=== PATIENT | male | born 1975 | race Caucasian/White ===

== ENCOUNTER → 2016-05-22 | Outpatient (CLI) | payer BC | LOC: US 11:24 | DX: N40.1 Benign prostatic hyperplasia with lower urinary tract symptoms (principal); R35.0 Frequency of micturition; R30.0 Dysuria; K50.90 Crohn's disease, unspecified, without complications | CPT/HCPCS: 76856 ==

== ENCOUNTER → 2020-07-21 | Outpatient (CLI) | payer BC | LOC: RAD 15:03 | DX: Z01.818 Encounter for other preprocedural examination (principal) | CPT/HCPCS: 71046 ==

== ENCOUNTER → 2021-01-22 | Outpatient (CLI) | payer BC, MEDICARE ==
[2021-01-22 11:16] LABS: RED BLOOD COUNT 5.41 M/UL (4.20-5.50)
[2021-01-22 11:35] LABS: BUN/CREATININE RATIO 16 (0-10)
== END ==
LOC: LAB 10:31
PROVIDERS: Internal Medicine Gastroenterology
DX: K50.119 Crohn's disease of large intestine with unspecified complications (principal)
CPT/HCPCS: 36415; 80053; 82607; 85025; 85027

== ENCOUNTER → 2021-02-14 | Outpatient (CLI) | payer BC, MEDICARE ==
[2021-02-14 14:03] LABS: RED BLOOD COUNT 5.45 M/UL (4.20-5.50); WHITE BLOOD COUNT 9.2 K/UL (4.5-11.0)
[2021-02-14 14:04] LABS: BORDETELLA PARAPERTUSSIS Not Detected (Not Detectd); BORDETELLA PERTUSSIS Not Detected (Not Detectd); CHLAMYDIA PNEUMONIAE Not Detected (Not Detectd); CORONAVIRUS HKU1 Not Detected (Not Detectd); CORONAVIRUS NL63 Not Detected (Not Detectd); CORONOAVIRUS 229E Not Detected (Not Detectd); HUMAN METAPNEUMOVIRUS Not Detected (Not Detectd); HUMAN RHINOVIRUS/ENTEROVIRUS Not Detected (Not Detectd); INFLUENZA A Not Detected (Not Detectd); INFLUENZA B Not Detected (Not Detectd); MYCOPLASMA PNEUMONIAE Not Detected (Not Detectd); PARAINFLUENZA VIRUS 1 Not Detected (Not Detectd); PARAINFLUENZA VIRUS 2 Not Detected (Not Detectd); PARAINFLUENZA VIRUS 3 Not Detected (Not Detectd); PARAINFLUENZA VIRUS 4 Not Detected (Not Detectd); RESPIRATORY SYNCYTIAL VIRUS Not Detected (Not Detectd)
[2021-02-14 15:05] LABS: CORONAVIRUS OC43 DETECTED (Not Detectd); SARS-CoV-2 NOT DETECTED (Not Detectd)
[2021-02-15 06:10] LABS: BILIRUBIN, TOTAL 0.2 mg/dL (0.0-1.2); CALCIUM, SERUM 9.6 mg/dL (8.7-10.2); CREATININE, SERUM 1.05 mg/dL (0.76-1.27); GLOBULIN, TOTAL 2.4 g/dL (1.5-4.5); POTASSIUM, SERUM 4.8 mmol/L (3.5-5.2); PROTEIN, TOTAL, SERUM 7.1 g/dL (6.0-8.5)
== END ==
LOC: LAB 13:11
PROVIDERS: Nurse Practitioner Family
DX: R05.9 Cough, unspecified (principal); Z20.822 Contact with and (suspected) exposure to COVID-19
CPT/HCPCS: 36415; 80053; 85025; 87633